=== PATIENT | male | born 1985 | race Caucasian/White ===

== ENCOUNTER → 2021-02-03 08:52 | Outpatient (CLI) | payer OTHER, SELFPAY ==
[2021-02-03 11:06] LABS: Anion Gap 5 (5-15); BUN 17 mg/dL (7-18); BUN/Creat Ratio 17.2 RATIO (10-20); Calcium,Total 9.2 mg/dL (8.5-10.1); Chloride 106 mmol/L (98-107); Cholesterol 167 mg/dL (200); Creatinine, Serum 0.99 mg/dL (0.70-1.30); EST Glomerular Filtration Rate 91 mL/min (>60); Est Glom Filt Rate - Afr Amer 110 mL/min (>60); Glucose 85 mg/dL (74-106); High Density Lipoprotein 31 mg/dL; Potassium 4.2 mmol/L (3.5-5.1); Sodium Level 139 mmol/L (136-145); Thyroid Stim Hormone (TSH) 1.72 uIU/mL (0.358-3.74); Triglycerides 436 mg/dL
[2021-02-03 11:15] LABS: Vitamin D,25 Hydroxy 26.5 ng/mL
== END ==
PROVIDERS: Visit Provider Family Medicine
DX: Z00.00 Encounter for general adult medical examination without abnormal findings (principal)
CPT/HCPCS: 36415; 80048; 80061; 82306; 84403; 84443

== ENCOUNTER 2023-08-28 21:04 | Emergency (ER) | payer OTHER, SELFPAY ==
[2023-08-28 21:05] VITALS: BP 175/92; PULSE 95; RESP 16; TEMP 36.3; O2SAT 100; BMI 33.6
--- OUTSIDE RECORDS SUMMARY | 2023-08-28 22:38 | XMS RPT_ITS | CCD ---
Author Name Unknown Address [address] [facility] [address] [place] [address] Organization [facility] Care Team Providers Care Android Programmer Name Role Phone Unavailable Primary Care Provider Unavailabl e Medications Current Medications Medication Drug Class(es) Dates Sig (Normalized) Sig (Original) sulfamethoxazole 800 mg / trimethoprim 160 mg oral tablet (1 source) Dihydrofolate Reductase Inhibitor Antibacterial, Sulfonamide Antimicrobial Start: 08-26-2023 End: 09-05-2023 take 1 tablet by mouth twice daily sulfamethoxazol e-trimethoprim (BACTRIM DS) 800-160 mg per tablet Indications: Cellulitis of skin Take 1 tablet by mouth two times a day for 10 days. 20 tablet 0 08/26/2023 09/05/2023 Active Problems Problem Classification Problem Date Documented Da te Episodic/Chronic Other injuries and conditions due to external causes (1 source) Splinter in skin; Translations: [Other injury of unspecified body region, initial encounter] 08-26-2023 Episodic Skin and subcutaneous tissue infections (1 source) Cellulitis of skin; Translations: [Cellulitis, unspecified] 08-26-2023 Episodic Results Test Name Value Interpretation Reference Range Facil ity Vital Signs Date Time Vital Sign Value Performing Clinician Richie fitzgerald 08-26-2023 17:03-0500 Body temperature 101.3 [degF] Jenifer Velazco APRN.CNP Work Phone: [facility] 08-26-2023 17:03-0500 Body weight 120.84 kg Jenifer Velazco APRN.CNP Work Phone: [facility] 08-26-2023 17:03-0500 Diastolic blood pressure 78 mm[Hg] Jenifer Velazco APRN.CNP Work Phone: [facility] 08-26-2023 17:03-0500 Heart rate 124 /min Jenifer Velazco APRN.CNP Work Phone: [facility] 08-26-2023 17:03-0500 Respiratory rate 21 /min Jenifer Velazco APRN.SECURITY TRAINER Work Phone: [facility] 08-26-2023 17:03-0500 SaO2% (BldA) [Mass fraction] 98 % Jenifer Velazco APRN.SECURITY TRAINER Work Phone: [facility] 08-26-2023 17:03-0500 Systolic blood pressure 142 mm[Hg] Jenifer Velazco APRN.SECURITY TRAINER Work Phone: [facility] Encounters Encounter Date Encounter Type Care Provider Facility Start: 08-26-2023 End: 08-26-2023 ambulatory Facility:[facility] Start: 08-26-2023 End: 08-26-2023 Patient encounter procedure Jenifer Velazco APRN.SECURITY TRAINER Work Phone: [facility] Plan of Treatment Date Care Activity Detail Author Start: 08-26-2033 Urine microalbumin profile DTa P,Tdap,Td Vaccine (2 - Td or Tdap) [facility] Start: 07-22-2023 Depression Assessment Depression Ass essment [facility] Start: 03-22-2023 Influenza vaccination Influenza Vacc ine (#1) [facility] Start: 2020 Lipid panel Lipid Screening [facility] Start: 2003 Hepatitis C screening Hepatitis C Sc elisa [facility] Start: 2003 HIV screening HIV Screening [facility] Start: 1985 Covid-19 Vaccine (#1) Covid-19 Vacci ne (#1) [facility] Start: 1985 Hepatitis B Vaccine (1 of 3 - 3-dose series) Hepatitis B Vaccine (1 of 3 - 3-dose series) [facility] Immunizations Immunization Date Immunization Notes Care Provider Fa shashi 08-26-2023 tetanus toxoid, redu timothy diphtheria toxoid, and acellular pertussis vaccine, adsorbed Jenifer Velazco APRN.CNP Work Phone: [facility] Payers Date Payer Category Payer Unknown MMO MMO [employer] PPO [id number] 2023-Present [phone] [address] [place] [address] PPO [id number] 2023 Unknown [id number] Social History Date Type Detail Facility Start: 08-26-2023 Tobacco smoking status NHIS Never smoked tobacco [facility] Start: 08-26-2023 Tobacco use and exposure Smokeless tobacco non-user [facility] Start: 08-26-2023 History of Social function [facility] Start: 08-26-2023 Tobacco use panel [facility] Start: 1985 Sex Assigned At Not on file [facility] NEGATED: Highlighted rowStart: NINF History of tobacco use Passive smoker [facility] Progress note 08-26-2023 Note Date & Type Note Facility 08-26-2023 Note HNO ID: [id number] Author: JENIFER VELAZCO APRN.SECURITY TRAINER Service: ? Author Type: Nurse Practitioner Type: Progress Notes Filed: 08/26/2023 17:51 Note Text: SUBJECTIVE: Parveen Sheth is a 38 year old male. Who presents today with concerns of an infection in the right pinky finger. He was working in the garage and got a splinter. He was able to remove the splinter at home. It was very small and very superficial. Today his finger is swollen and red. He has some decreased ROM of the finger due to pain and gaurding. He has chills last night no fever. He is right handed. He can not remember his last tetanus shot. HPI No past medical history on file. No family history on file. ALLERGIES Not on File No current outpatient medications on file. No current facility-administered medications for this visit. OBJECTIVE: There were no vitals taken for this visit. ROS all other systems reviewed and are negative Physical Exam Constitutional: Well developed, well nourished, NAD, AANDO X3. ENT: Head is atraumatic, airway patent, mucosal membranes moist. Cardiac: Heart tone normal rate and rhythm Respiratory: Breath sounds clear : no CVA tenderness MS: no swelling, tenderness or deformity in upper or lower extremities, no midline tenderness in cervical, thoracic or lumbar spine. R 5th finger is red and swollen. Decreased ROM of the finger with swelling cap refill is brisk pulses +2 no FB currently noted Neuro: strength sensation and coordination intact. CN II-XII grossly intact, Skin: warm and dry with out rash, lesion or ecchymosis on exposed skin Psych: alert appropriate, speech clear It was a pleasure to take care of Parveen Sheth today. For his cellulitis I will send in a prescription of bactrim. I will also update his tetanus today. He will keep the finger clean and dry and will wash with soap and water 2 times a day. He will monitor the infection closely. If it is getting worse and not better he will go to the ER for iv antibiotics. We discussed finger infections can become severe infections rather quickly and he should have a low threshold to seek further evaluation. Patient will follow up with family physician. They may return to the Urgent Care or go to the ER for worsening symptoms or concerns. Patient verbalized understanding of plan of care and is in agreement. ASSESSMENT/PLAN: 1. Cellulitis of skin - ICD9: 682.9, ICD10: L03.90 (primary diagnosis) - SULFAMETHOXAZOLE 800 MG-TRIMETHOPRIM 160 MG TABLET 2. Splinter - ICD9: 919.6, ICD10: T14.8XXA - TDAP VACCINE, AGE 7+ YR (ADACEL, BOOSTRIX) Jenifer Velazco APRN.[facility] History of Present illness Narrative 08-26-2023 Jenifer Velazco APRN.[facility] - 08/26/2023 4:47 PM EST Note Date & Type Note Facility 08-26-2023 History of Presen t illness Narrative SUBJECTIVE: Parveen Sheth is a 38 year old male. Who presents today with concerns of an infection in the right pinky finger. He was working in the garage and got a splinter. He was able to remove the splinter at home. It was very small and very superficial. Today his finger is swollen and red. He has some decreased ROM of the finger due to pain and gaurding. He has chills last night no fever. He is right handed. He can not remember his last tetanus shot. HPI No past medical history on file. No family history on file. ALLERGIES Not on File No current outpatient medications on file. No current facility-administered medications for this visit. OBJECTIVE: There were no vitals taken for this visit. ROS all other systems reviewed and are negative Physical Exam Constitutional: Well developed, well nourished, NAD, A&O X3. ENT: Head is atraumatic, airway patent, mucosal membranes moist. Cardiac: Heart tone normal rate and rhythm Respiratory: Breath sounds clear : no CVA tenderness MS: no swelling, tenderness or deformity in upper or lower extremities, no midline tenderness in cervical, thoracic or lumbar spine. R 5th finger is red and swollen. Decreased ROM of the finger with swelling cap refill is brisk pulses +2 no FB currently noted Neuro: strength sensation and coordination intact. CN II-XII grossly intact, Skin: warm and dry with out rash, lesion or ecchymosis on exposed skin Psych: alert appropriate, speech clear It was a pleasure to take care of Parveen Sheth today. For his cellulitis I will send in a prescription of bactrim. I will also update his tetanus today. He will keep the finger clean and dry and will wash with soap and water 2 times a day. He will monitor the infection closely. If it is getting worse and not better he will go to the ER for iv antibiotics. We discussed finger infections can become severe infections rather quickly and he should have a low threshold to seek further evaluation. Patient will follow up with family physician. They may return to the Urgent Care or go to the ER for worsening symptoms or concerns. Patient verbalized understanding of plan of care and is in agreement. ASSESSMENT/PLAN: 1. Cellulitis of skin - ICD9: 682.9, ICD10: L03.90 (primary diagnosis) - SULFAMETHOXAZOLE 800 MG-TRIMETHOPRIM 160 MG TABLET 2. Splinter - ICD9: 919.6, ICD10: T14.8XXA - TDAP VACCINE, AGE 7+ YR (ADACEL, BOOSTRIX) Jenifer Velazco APRN.SECURITY TRAINER documented in this encounter [facility] Evaluation note Note Date & Type Note Facility documented in this encounter [facility] Summary Purpose Family History No Family History Records Found Advance Directives No Advanced Directives Records Found Additional Source Comments Source Comments (unrecognize d section and content) In the event this informatio n is protected by the Federal Confidentiality of Alcohol and Drug Abuse Patient Records regulations: The Federal rules restrict any use of the information to criminally investigate or prosecute any alcohol or drug abuse patient.[facility] Reason for Visit (unrecogniz ed section and content) (unrecognized sect ion and content) No Status Records Found INFORMATION SOURCE (unrecogn ized section and content) FOR RECORDS PERTAINING TO PATIENTS WHO ARE OR HAVE BEEN ENROLLED IN A CHEMICAL DEPENDENCY/SUBSTANCEABUSE PROGRAM, SOME INFORMATION MAY BE OMITTED. This clinical summary was aggregated from multiple sources. Caution should be exercised in using it in the provision of clinical care. This summary normalizes information from multiple sources, and as a consequence, information in this document may materially change the coding, format and clinical context of patient data. In addition, data may be omitted in some cases. CLINICAL DECISIONS SHOULD BE BASED ON THE PRIMARY CLINICAL RECORDS. [employer] provides no warranty or guarantee of the accuracy or completeness of information in this document.
== END 2023-08-28 22:21 | disposition left against medical advice (07) ==
LOC: ED 22:36
DX: Z53.21 Procedure and treatment not carried out due to patient leaving prior to being seen by health care provider (principal)

== ENCOUNTER 2025-01-24 09:37 | Emergency (ER) | payer OTHER, SELFPAY ==
[2025-01-24 09:38] VITALS: BP 149/90; PULSE 82; RESP 16; TEMP 36.9; O2SAT 99; BMI 33.1
--- NOTE | 2025-01-24 10:31 | EX.ED.VIS.EY ---
HPI History of Present Illness Chief Complaint: Eye Problem Detail of Chief Complaint: Left eye pain since 2 AM Informant: patient Onset/Context/Timing Location: Left Eye Onset: Today Context: Sudden Onset Timing: Continuous Current Severity: Mild Maximum Severity: Moderate Worsened by: Nothing Relieved by: Nothing Associated Symptoms Associated Symptoms - Eyes: Drainage (Clear), Foreign body sensation and Redness; Negative for Burning, Crusting, Eyelid swelling, Itching, Matting, Pain or Photophobia History of injury: No Visual correction: None Narrative Narrative: Patient is a 39-year-old male. He presents with left eye pain. There is no history of trauma. He states he was swimming in the pool that was chlorinated. He awoke this morning at 2 AM with left eye pain. He feels or something in the eye. He states this is happened in the past when he was grinding. He has not been grinding recently. He does not wear glasses or contacts. There is no family history of glaucoma. He has been rubbing his left eye. He has not noted any swelling of his eye lids. There is no matting of his eyelashes. He has seen one of the funeral director/embalmer at [facility]. He has no other complaints. Prior similar symptoms: Yes Recent Illness/Hospitalization: No PFSH PFSH Medical History no medical history Home Medications ?Medication ?Instructions ?Recorded ?Last Taken ?Type ciprofloxacin HCl 0.3 % eye drops 1 drp LEFT EYE Q2H 5 days #2.5 mL 01/24/25 Unknown Rx ketorolac 0.4 % eye drops 1 drp LEFT EYE Q6H 4 days #5 mL 01/24/25 Unknown Rx Allergy/AdvReac Type Severity Reaction Status Date / Time No Known Allergies Allergy Verified 01/24/25 09:38 Social History (Updated 01/24/25 @ 10:[address] Daniele Reeves MD) household members: spouse and children Smoking Status: Never smoker ROS ROS ED Constitutional Constitutional ED: Denies chills, fever(s), subjective or sweats Eyes Eyes: Reports other Details: Detailed HPI narrative ; Denies blurry vision, change in vision or diplopia ENT ENT ED: Denies ear pain, rhinorrhea or sore throat Integumentary Denies rash Neurologic Neurologic: Denies headache(s) or paresthesias EXAM Physical Exam Const Vital Signs: 01/24/25 09:38 Temperature 98.5 F Temperature Source Oral Pulse Rate 82 Respiratory Rate 16 Blood Pressure 149/90 H Blood Pressure Mean 109 Pulse Ox 99 Oxygen Delivery Method Room Air Positive well nourished and well developed Constitutional Narrative: Blood pressure is slightly elevated. General Appearance ED: well developed HEENT HEENT Narrative: Head is atraumatic and normocephalic. Ears are normal. Nares are patent. There are no dermatologic lesions noted. There is no preauricular lymphadenopathy noted. Eyes Eyes Narrative: Pupils equal round reactive to light. Extraocular muscles are intact. There is inflammation of the conjunctive on the left only. There is clear drainage noted. There is no abnormality of the ocular apparatus, lids or lashes. There is no photophobia. There are no skin lesions noted on the left side of his face. Patient's eyes were anesthetized with tetracaine and stained with foreseen. There was no abnormality noted either eye. There was no fluorescein uptake. There was no flare or cells noted in anterior chamber. He did not have photophobia to consensual light. He initially complained of burning sensation when he was anesthetized. There is no foreign body noted. Neck no lymphadenopathy, supple and no JVD Resp normal respiratory effort Cardio regular rate and regular rhythm Neuro oriented x3 and CN's II-XII intact bilaterally Sensorium / Orientation: alert Skin no wounds Lesions: no lesions Rashes: no rashes MDM MDM MDM Narrative Medical decision making narrative: Patient with inflammation of the conjunctiva. This may be chemically induced There is no evidence of corneal abrasion. There is no lesions to suggest herpes varicella-zoster. Patient's history is not consistent with glaucoma. Nurses been asked to perform visual acuity. Treatment and Re-Evaluation Narrative: Visual acuity is 20/20 right and left eye and both eyes. Plan prescription for ketorolac ophthalmic drops and ciprofloxacin ophthalmic drops. He is to follow-up at the [place] [facility] where he has been seen in the past if no improvement in 2 days. Discharge Plan Triage Chief Complaint: Eye Problem ED Provider: Daniele Reeves Dx/Rx/DC Orders Clinical Impression: Acute conjunctivitis of left eye Instructions: ED Conjunctivitis, Nonspecific Prescriptions: New ketorolac 0.4 % drops 1 drp LEFT EYE Q6H 4 Days Qty: 5 0RF ciprofloxacin HCl 0.3 % drops 1 drp LEFT EYE Q2H 5 Days Qty: 2.5 0RF Rx Instructions: administer while awake Primary Care Provider: Care Physician,No Primary Referrals: Care Physician,No Primary [Primary Care Provider] - Cornelius Lord MD [Med Staff - Active Staff] - 1-2 Days if not improving Print Language: Greenlandic Disposition Disposition: Home, Self Care
--- OUTSIDE RECORDS SUMMARY | 2025-01-24 11:11 | XMS RPT_ITS | CCD ---
Author Organization [facility] Inform ion Partnership [facility] Care Team Providers Care Technical Support Consultant Name Role Phone Unavailable Primary Care Provider Unavailabl e Provider, Ed Physician Attending Unavailab le Care Physician, No Primary Primary Care Unava ilable Medications Current Medications Medication Drug Class(es) Dates [...] days. 20 tablet 0 08/26/2023 09/05/2023 Active Comment on above: Take 1 tablet by krista th two times a day for 10 days. Problems Problem Classification Problem Date Documented Da te Episodic/Chronic Other injuries and conditions due to external causes (1 source) Splinter in skin; Translations: [Other injury of unspecified body region, initial encounter] 08-26-2023 Episodic Residual codes; unclassified (1 source) Procedure and treatment not carried out due to patient leaving prior to being seen by health care provider; Translations: [Procedure and treatment not carried out due to patient leaving prior to being seen by health care provider] Onset: 09-03-2023 Episodic Skin and subcutaneous tissue infections (1 source) Cellulitis of skin; Translations: [Cellulitis, unspecified] 08-26-2023 Episodic Results Test Name Value Interpretation Reference Range Facil ity CNOVon 08-26-2023 CNOV Office Visit (UCWSTR ) -------- PARVEEN SHETH ([id number]) 1985 M Date Time Provider Department 08/26/23 4:45 PM JENIFER VELAZCOWSMENDEZ During your visit today, we recorded the following information about you: Temperature Pulse Respiration Blood pressure 101.3 degrees 124/minute 21/minute 142/78 Weight 120.8 kg Jenifer Velazco APRN.CNP 08/26/2023 5:51 PM Signed SUBJECTIVE: Parveen Sheth is a 38 year [...] AGE 7+ YR (ADACEL, BOOSTRIX) Jenifer Velazco APRN.[employer] Allergies As of Date: 08/26/2023 (Not on File) Date Reviewed: 08/26/2023 Reviewed by: Amarilis Colon MA - Fully Assessed Reason for Visit: infection [Other] Cmt: Right pinky infection x 1 day Primary Visit Diagnosis:Cellulitis of skin [L03.90] Other Visit Diagnosis:Splinter [T14.8XXA] Order(s):sulfamethoxazol e-trimethoprim (BACTRIM DS) 800-160 mg per tabletTake 1 tablet by mouth two times a day for 10 days.Disp: 20 tabletRfl: 0 TDAP VACCINE, AGE 7+ YR (ADACEL, BOOSTRIX) [[id number]] Order #: [id number] Prescriptions as of 08/26/2023 - sulfamethoxazole-trimeth oprim (BACTRIM DS) 800-160 mg per tablet Take 1 tablet by mouth two times a day for 10 days. Problem List As Of Date: 08/26/2023 (None) Prescriptions ordered this encounter Disp Refills Start End SULFAMETHOXAZOLE 800 MG-TRIMETHOPRIM* 20 t* 0 08/26/2023 09/05/2023 Route: ORAL Sig: Take 1 tablet by mouth two times a day for 10 days. Encounter Status:Closed by JENIFER VELAZCO on 08/26/23 Normal [facility] Vital Signs Date Time Vital Sign Value Performing Clinician Facility 08-28-2023 21:05-0500 Body height 185.42 cm [facility] 08-28-2023 21:05-0500 Body mass index (BMI) [Ratio] 33.6 kg/m2 [facility] 08-28-2023 21:05-0500 Body temperature 97.4 [degF] [facility] 08-28-2023 21:05-0500 Body weight 115.66 kg [facility] 08-28-2023 21:05-0500 Diastolic blood pressure 92 mm[Hg] [facility] 08-28-2023 21:05-0500 Heart rate 95 /min [facility] 08-28-2023 21:05-0500 Respiratory rate 16 /min [facility] 08-28-2023 21:05-0500 SaO2% (BldA) [Mass fraction] 100 % [facility] 08-28-2023 21:05-0500 Systolic blood pressure 175 mm[Hg] [facility] 08-26-2023 17:03-0500 Body temperature 101.3 [degF] Jenifer Velazco OFFICE SPECIALIST.[facility] Work Phone: [facility] 08-26-2023 17:03-0500 Body weight 120.84 kg Jenifer Velazco OFFICE SPECIALIST.[facility] Work Phone: [facility] 08-26-2023 17:03-0500 Diastolic blood pressure 78 mm[Hg] Jenifer Velazco OFFICE SPECIALIST.[facility] Work Phone: [facility] 08-26-2023 17:03-0500 Heart rate 124 /min Jenifer Velazco OFFICE SPECIALIST.[facility] Work Phone: [facility] 08-26-2023 17:03-0500 Respiratory rate 21 /min Jenifer Velazco OFFICE SPECIALIST.[facility] Work Phone: [facility] 08-26-2023 17:03-0500 SaO2% (BldA) [Mass fraction] 98 % Jenifer Velazco OFFICE SPECIALIST.[facility] Work Phone: [facility] 08-26-2023 17:03-0500 Systolic blood pressure 142 mm[Hg] Jenifer Velazco OFFICE SPECIALIST.[facility] Work Phone: [facility] Encounters Encounter Date Encounter Type Care Provider Facility Start: 08-28-2023 End: 08-29-2023 Emergency department patient visit Ed Physician Provider Facility:[facility] Start: 08-28-2023 End: 08-28-2023 Emergency department patient visit [facility] Work Phone: Start: 08-26-2023 End: 08-26-2023 ambulatory Facility:[facility] Start: 08-26-2023 End: 08-26-2023 Patient encounter procedure Jenifer Velazco APRN.[facility] [employer] Work Phone: [facility] Care Comment on above: Cellulitis of skin ( Primary Dx); Splinter Plan of Treatment Date Care Activity Detail Author Start: 08-26-2033 Urine microalbumin profile DTa P,Tdap,Td Vaccine (2 - Td or Tdap) [facility] Start: 07-22-2023 Depression Assessment Depression Ass essment [facility] Start: 03-22-2023 Influenza vaccination Influenza Vacc ine (#1) [facility] Start: 2020 Lipid panel Lipid Screening [facility] Start: 2003 Hepatitis C screening Hepatitis C Sc reening [facility] Start: 2003 HIV screening HIV Screening [facility] Start: 1985 Covid-19 Vaccine (#1) Covid-19 Vacci ne (#1) [facility] Start: 1985 Hepatitis B Vaccine (1 of 3 - 3-dose series) Hepatitis B Vaccine (1 of 3 - 3-dose series) [facility] Immunizations Immunization Date Immunization Notes Care Provider Fa cility 08-26-2023 tetanus toxoid, redu timothy diphtheria toxoid, and acellular pertussis vaccine, adsorbed Jenifer Velazco APRN.[facility] Work Phone: [facility] Payers Date Payer Category Payer Self-pay [id number] 2023 Unknown MMO MMO [employer] PPO [id number] 2023-Present [phone] [address] [place] [address] PPO [id number] 2021 Unknown [id number] Unknown KITTY [id number] Unknown [id number] Social History Date Type Detail Facility Start: 08-26-2023 Tobacco smoking status NHIS Never smoked tobacco [facility] Start: 08-26-2023 Tobacco use and exposure Smokeless tobacco non-user [facility] Start: 08-26-2023 History of Social function [facility] Start: 08-26-2023 Tobacco use panel [facility] Start: 1985 Sex Assigned At Not on file [facility] Start: 1985 Sex Assigned At Male [facility] NEGATED: Highlighted rowStart: NINF History of tobacco use Passive smoker [facility] Progress note 08-26-2023 Note Date & Type Note Facility 08-26-2023 Note HNO ID: [id number] Author: JENIFER VELAZCO APRN.[facility] Service: ? Author Type: Nurse Practitioner Type: [...] 7+ YR (ADACEL, BOOSTRIX) Jenifer Velazco APRN.MARIO [facility] History of Present illness Narrative 08-26-2023 Jenifer Velazco APRN.[facility] [facility] - 08/26/2023 4:47 PM EST Note Date [...] AGE 7+ YR (ADACEL, BOOSTRIX) Jenifer Velazco APRN.[facility] documented in this encounter [facility] Evaluation note Note Date & Type Note Facility Evaluation note Diagnosis Cellulitis of skin- Primary Cellulitis and abscess of unspecified site Splinter Other, multiple, and unspecified sites, superficial foreign body (splinter), without major open wound and without mention of infection documented in this encounter [facility] Evaluation note Note Date & Type Note Facility Evaluation note No assessment information availa deepa [facility] Work Phone: Summary Purpose Family History No Family History Records FoundNo Family History Records Found Advance Directives No Advanced Directives Records FoundNo Advanced Directives Records Found Chief Complaint and Reason for Visit Chief Complaint R 5TH FINGER INFECTI ON Additional Source Comments Source Comments (unrecognize d section and content) In the event this informatio n is protected by the Federal Confidentiality of Alcohol and Drug Abuse Patient Records regulations: The Federal rules restrict any use of the information to criminally investigate or prosecute any alcohol or drug abuse patient.[facility] Reason for Visit (unrecogniz ed section and content) Reason Comments infection Right pinky infectio n x 1 day (unrecognized sect ion and content) No Status Records FoundNo Status Records Found INFORMATION SOURCE (unrecogn ized section and content) DATE CREATED AUTHOR 08/27/2023 [facility] DATE CREATED AUTHOR AUTHOR'S ORGANIZ ATION 09/04/2023 [facility] Care Teams (unrecognized sec tion and content) Team Status: Active Member Role Status Dates No Primary Care Physician Primary Care Provider Active Team Status: Inactive Member Role Status Dates Ed Physician Provider Emergency Provider Active No Primary Care Physician Primary Care Provider Active Goals (unrecognized section and content) Goals may be documented in a n alternate section FOR RECORDS PERTAINING TO PATIENTS WHO ARE [...] BE BASED ON THE PRIMARY CLINICAL RECORDS. [facility] [employer] [facility]. provides no warranty or guarantee of the accuracy or completeness of information in this document.
--- OUTSIDE RECORDS SUMMARY | 2025-01-24 11:11 | XMS RPT_ITS | CCD ---
Author Organization [facility] Inform ion Partnership [facility] Care Team Providers Care Advertising Representative Name Role Phone Unavailable Primary Care Provider [...] Office Visit (UCWSTR ) -------- PARVEEN SHETH ([id number]) 1985 M Date Time Provider Department 08/26/23 [...] AGE 7+ YR (ADACEL, BOOSTRIX) Jenifer Velazco APRN.AUDIO VISUAL FACILITIES ENGINEER Allergies As of Date: 08/26/2023 (Not on [...] TDAP VACCINE, AGE 7+ YR (ADACEL, BOOSTRIX) [[id number]] Order #: [id number] Prescriptions as of 08/26/2023 - sulfamethoxazole-trimeth oprim [...] Status:Closed by JENIFER VELAZCO on 08/26/23 Normal [facility] Vital Signs Date Time Vital Sign Value Performing Clinician Facility 08-28-2023 21:05-0500 Body height 185.42 cm [facility] 08-28-2023 21:05-0500 Body mass index (BMI) [Ratio] 33.6 kg/m2 [facility] 08-28-2023 21:05-0500 Body temperature 97.4 [degF] [facility] 08-28-2023 21:05-0500 Body weight 115.66 kg [facility] 08-28-2023 21:05-0500 Diastolic blood pressure 92 mm[Hg] [facility] 08-28-2023 21:05-0500 Heart rate 95 /min [facility] 08-28-2023 21:05-0500 Respiratory rate 16 /min [facility] 08-28-2023 21:05-0500 SaO2% (BldA) [Mass fraction] 100 % [facility] 08-28-2023 21:05-0500 Systolic blood pressure 175 mm[Hg] [facility] 08-26-2023 17:03-0500 Body temperature 101.3 [degF] Jenifer Velazco POCKET STITCHER.AUDIO VISUAL FACILITIES ENGINEER Work Phone: [facility] 08-26-2023 17:03-0500 Body weight 120.84 kg Jenifer Velazco POCKET STITCHER.AUDIO VISUAL FACILITIES ENGINEER Work Phone: [facility] 08-26-2023 17:03-0500 Diastolic blood pressure 78 mm[Hg] Jenifer Velazco POCKET STITCHER.AUDIO VISUAL FACILITIES ENGINEER Work Phone: [facility] 08-26-2023 17:03-0500 Heart rate 124 /min Jenifer Velazco POCKET STITCHER.AUDIO VISUAL FACILITIES ENGINEER Work Phone: [facility] 08-26-2023 17:03-0500 Respiratory rate 21 /min Jenifer Velazco POCKET STITCHER.AUDIO VISUAL FACILITIES ENGINEER Work Phone: [facility] 08-26-2023 17:03-0500 SaO2% (BldA) [Mass fraction] 98 % Jenifer Velazco POCKET STITCHER.AUDIO VISUAL FACILITIES ENGINEER Work Phone: [facility] 08-26-2023 17:03-0500 Systolic blood pressure 142 mm[Hg] Jenifer Velazco POCKET STITCHER.AUDIO VISUAL FACILITIES ENGINEER Work Phone: [facility] Encounters Encounter Date Encounter Type Care Provider Facility Start: 08-28-2023 End: 08-29-2023 Emergency department patient visit Ed Physician Provider Facility:[facility] Start: 08-28-2023 End: 08-28-2023 Emergency department patient visit [facility] Work Phone: Start: 08-26-2023 End: 08-26-2023 ambulatory Facility:[facility] Start: 08-26-2023 End: 08-26-2023 Patient encounter procedure Jenifer Velazco APRN.AUDIO VISUAL FACILITIES ENGINEER Work Phone: [facility] Care Comment on above: Cellulitis of skin ( Primary Dx); Splinter Plan of Treatment Date Care Activity Detail Author Start: 08-26-2033 Urine microalbumin profile DTa P,Tdap,Td Vaccine (2 - Td or Tdap) [facility] Start: 07-22-2023 Depression Assessment Depression Ass essment [facility] Start: 03-22-2023 Influenza vaccination Influenza Vacc ine (#1) [facility] Start: 2020 Lipid panel Lipid Screening [facility] Start: 2003 Hepatitis C screening Hepatitis C Sc reening [facility] Start: 2003 HIV screening HIV Screening [facility] Start: 1985 Covid-19 Vaccine (#1) Covid-19 Vacci ne (#1) [facility] Start: 1985 Hepatitis B Vaccine (1 of 3 - 3-dose series) Hepatitis B Vaccine (1 of 3 - 3-dose series) [facility] Immunizations Immunization Date Immunization Notes Care Provider Fa cility 08-26-2023 tetanus toxoid, redu timothy diphtheria toxoid, and acellular pertussis vaccine, adsorbed Jenifer Velazco APRN.AUDIO VISUAL FACILITIES ENGINEER Work Phone: [facility] Payers Date Payer Category Payer Self-pay [id number] 2023 Unknown MMO MMO [employer] PPO [id number] 2023-Present [phone] [address] [place] [address] PPO [id number] 2021 Unknown [id number] Unknown KITTY [id number] Unknown [id number] Social History Date Type Detail Facility Start: 08-26-2023 Tobacco smoking status NHIS Never smoked tobacco [facility] Start: 08-26-2023 Tobacco use and exposure Smokeless tobacco non-user [facility] Start: 08-26-2023 History of Social function [facility] Start: 08-26-2023 Tobacco use panel [facility] Start: 1985 Sex Assigned At Not on file [facility] Start: 1985 Sex Assigned At Male [facility] NEGATED: Highlighted rowStart: NINF History of tobacco use Passive smoker [facility] Progress note 08-26-2023 Note Date & Type Note Facility 08-26-2023 Note HNO ID: [id number] Author: JENIFER VELAZCO APRN.AUDIO VISUAL FACILITIES ENGINEER Service: ? Author Type: Nurse Practitioner Type: [...] 7+ YR (ADACEL, BOOSTRIX) Jenifer Velazco APRN.MARIO [facility] History of Present illness Narrative 08-26-2023 Jenifer Velazco APRN.AUDIO VISUAL FACILITIES ENGINEER - 08/26/2023 4:47 PM EST Note Date [...] AGE 7+ YR (ADACEL, BOOSTRIX) Jenifer Velazco APRN.AUDIO VISUAL FACILITIES ENGINEER documented in this encounter [facility] Evaluation note Note Date & Type Note Facility Evaluation note Diagnosis Cellulitis of skin- Primary Cellulitis and abscess of unspecified site Splinter Other, multiple, and unspecified sites, superficial foreign body (splinter), without major open wound and without mention of infection documented in this encounter [facility] Evaluation note Note Date & Type Note Facility Evaluation note No assessment information availa deepa [facility] Work Phone: Summary Purpose Family History No [...] or prosecute any alcohol or drug abuse patient.[facility] Reason for Visit (unrecogniz ed section and content) Reason Comments infection Right pinky infectio n x 1 day (unrecognized sect ion and content) No Status Records FoundNo Status Records Found INFORMATION SOURCE (unrecogn ized section and content) DATE CREATED AUTHOR 08/27/2023 [facility] DATE CREATED AUTHOR AUTHOR'S ORGANIZ ATION 09/04/2023 [facility] Care Teams (unrecognized sec tion and [...] BE BASED ON THE PRIMARY CLINICAL RECORDS. [facility]. provides no warranty or guarantee of the accuracy or completeness of information in this document.
[2025-01-24 11:49] VITALS: BP 141/88; PULSE 79; RESP 16; TEMP 37.2; O2SAT 100
== END 2025-01-24 11:50 | disposition home or self-care (01) ==
PROVIDERS: Emergency Provider Emergency Medicine; Visit Provider Emergency Medicine
DX: H10.32 Unspecified acute conjunctivitis, left eye (principal)
CPT/HCPCS: 99282